=== PATIENT | male | born 1945 | race Caucasian/White ===

== ENCOUNTER → 2016-08-22 | Outpatient (CLI) | payer OTHER ==
--- NOTE | 2016-08-24 11:51 | EKG ---
Date Performed: 08/22/2016 Time Performed: 11:50:08 PTAGE: 71 years EKG: Sinus arrhythmia with frequent multifocal PVCs. Lateral T wave changes are nonspecific Abno rmal ECG NO PREVIOUS TRACING DOCTOR: Rosales Mckeon Interpretating Date/Time 08/24/2016 11:49:53
== END ==
LOC: HCAV 11:40
PROVIDERS: ATTEND Family Medicine
DX: I49.9 Cardiac arrhythmia, unspecified (principal)
CPT/HCPCS: 93005